=== PATIENT | male | born 1950 | race Caucasian/White ===

== ENCOUNTER 2023-05-16 07:12 | Emergency (ER) | payer MEDICARE, SELFPAY ==
[2023-05-16 07:14] VITALS: BP 123/70
--- NOTE | 2023-05-16 07:34 | ED.GENMED ---
History of Present Illness
General
Chief Complaint: DVT/Possible Blood Clot
Time Seen by Provider: 05/16/23 07:19
Travel History
Have you had any contact with someone who has COVID-19?: No
Do you have any symptoms of coronavirus? Fever > 100 degrees, chills, cough, shortness of breath, sore throat, loss of taste or smell, muscle aches, or headache?: No
History of Present Illness
History of Present Illness:
53-year-old male presents to the emergency department for evaluation of right popliteal and calf swelling beginning last night. He is a [place] resident, flew to [place] to help family over the weekend. Notes that approximately 6 months
ago he had a extensive right lower extremity DVT that required medical flight to [facility] where he was given the option for thrombectomy versus anticoagulation and he opted for mechanical thrombectomy. He was treated for just over 3 months
with Eliquis. Several weeks ago he followed up with his primary care doctor for D-dimer trending and due to elevated D-dimer numbers was restarted on Eliquis in anticipation of this flight to [place]. He has been on Eliquis for the past 7
days. He does note that he has been walking up and down steps frequently which is not typical for him. Does report mild achiness in the leg but denies any significant pain. No fevers or chills. No distal leg paresthesias.
Review of Systems
Review of Systems
Allergies reviewed?: Yes
All Other Systems: ROS reviewed and negative except as documented in HPI and ROS
Phy Exam
Physical Exam
Physical Exam:
GEN: Well appearing, NAD, WDWN
HEENT: Oral mucosa moist, no scleral icterus
Cardiac: Regular rate
Lung: No respiratory distress, no tachypnea
MSK: No gross deformity or injuries. Mild swelling to the right popliteal region extending to the upper right calf, no significant ankle edema. Dorsalis pedis pulses 2+ bilaterally. Normal range of motion right knee with no crepitus or joint
effusion
Skin: Good color, no pallor or jaundice, no rashes
Neuro: AO x3, moves all extremities freely
Psych: Calm, cooperative
Course
Orders/Labs/Results
Orders:
Orders
05/16/23 07:33
Venous Doppler Lwr Ext Rt [[facility] Venous LOWER Ext RT] Urgent
Comment:
Reason For Exam: RLE edema, recent hx of DVT
05/16/23 10:16
Enoxaparin Sodium [Lovenox] 80 mg SC NOW STA
Vital Signs
Initial and Last Documented VS:
Initial Vital Signs
Temp Pulse Resp BP Pulse Ox
98.1 F 69 18 123/70 99
05/16/23 07:14 05/16/23 07:14 05/16/23 07:14 05/16/23 07:14 05/16/23 07:14
Last Documented Vital Signs
Temp Pulse Resp BP Pulse Ox
98.1 F 59 16 126/81 100
05/16/23 07:14 05/16/23 10:22 05/16/23 10:22 05/16/23 10:22 05/16/23 10:22
MDM/Problems Addressed
MDM/Problems Addressed:
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 I discussed the case with hematology, at this time and it is not considered Eliquis failure as the patient never received therapeutic dose Eliquis prior to his travels. Nevertheless
given that he is anticipating a flight home to [place] within the next 1 to 2 weeks I feel it is most beneficial to start this patient on Lovenox to be sure he is certainly anticoagulated, he can follow-up locally when he returns to [place]
for further discussion of appropriate long-term anticoagulation plan.
*Critical Care Note
Total Time (30-74mins, 75-104mins- exclusive of procedures): Not Applicable
ED Attending Note
-
Portions of this chart may have been created with voice recognition software.� Occasional wrong word or��sound alike� substitutions may have occurred due to the inherent limitations of voice recognition software.
Discharge Plan
Departure
Patient Disposition: Home (Routine Discharge)
Date of Disposition: 05/16/23
Time of Disposition: 10:17
Patient with high blood pressure during this ER visit?: No
Discharge Problem:
Acute deep vein thrombosis (DVT) of popliteal vein of right lower extremity
Instructions: Deep Vein Thrombosis (Blood Clots in the Legs) (DC)
Prescriptions:
New
enoxaparin [Lovenox] 80 mg/0.8 mL syringe
80 mg SC Q12H 30 Days Qty: 48 0RF
Referrals:
NONE,* [Family Provider] -
Activity Restrictions/Additional Instructions:
Will be starting you on Lovenox as it is an appropriate therapy given your upcoming flight. It is not definitive that you will need to be on Lovenox long-term.
Please discuss with your primary care physician when he returns to [place] any blood work you may need including an antiphospholipid antibody, in some cases certain clotting disorders require warfarin as opposed to Eliquis/Xarelto
Interventions
Interventions:
*Risk Screen - Suicide Last Done: 05/16/23 07:14
*General Assessment Last Done: 05/16/23 07:14
*Neglect/Abuse Screening Last Done: 05/16/23 07:14
ED- Fall Risk Assessment Last Done: 05/16/23 10:34
*ED COVID-19 Vaccine History Last Done: 05/16/23 07:14
*Nursing Disposition Last Done: 05/16/23 10:34
ED- Cardiac Assessment Last Done: 05/16/23 07:24
ED- Pulmonary Assessment Last Done: 05/16/23 07:24
ED-Peripheral Vascular Assessment Last Done: 05/16/23 07:24
ED-Skin Assessment Last Done: 05/16/23 07:24
Discharge Date and Time
Discharge Date/Time: 05/16/23 10:36
[2023-05-16 09:23] VITALS: BP 115/80
[2023-05-16] MEDS: LOVENOX 80 MG SC (10:19)
[2023-05-16 10:22] VITALS: BP 126/81
== END 2023-05-16 10:36 | disposition home or self-care (01) ==
LOC: EMR 07:12
PROVIDERS: EMERGENCY PHYSICIAN Emergency Medicine
DX: I82.431 Acute embolism and thrombosis of right popliteal vein (principal); I82.451 Acute embolism and thrombosis of right peroneal vein
CPT/HCPCS: 99284; 96372; 93971